=== PATIENT | male | born 1955 | race Caucasian/White ===

== ENCOUNTER 2019-06-04 02:29 | Inpatient (IN) | payer MEDICARE, OTHER ==
[~2019-06-04] VITALS: Ht 172.7 cm; Wt 128.8 kg
[2019-06-04] VITALS (9 sets, daily range): BP systolic 115–138; BP diastolic 60–70
[~2019-06-04 02:29] MED LIST: ASPI-869 PO; LISI-607 PO; METO-357 PO
--- NOTE | 2019-06-04 03:50 | NUR ---
DERRICK HAND OPENING NOTES, RECEIVED PATIENT FROM [place] VIA ULISES, AWAKE, A/O X4, JAPANESE SPEAKING. PATIENT IS AMBULATORY, ON 2L NC, NO SOB OR ACUTE DISTRESS NOTED AT THIS TIME . VS WNL. IV ON RIGHT HAND #22. FLUSHING WELL, NO S/S OF INFILTRATION NOTED. PATIENT IS ABLE TO USE URINAL. SKIN IS INTACT,ALL SAFETY MEASURES IN PLACE. BED LOCKED/LOW POSITION. CALL LIGHT WITHIN REACH WILL CONTINUE TO MONITOR.
[2019-06-04] MEDS ORDERED: MAGNESIUM HYDROXIDE 30 ML UDC PO PRN (05:30)
[2019-06-04] MEDS ORDERED: ACETAMINOPHEN 325 MG TABLET PO PRN (05:30)
[2019-06-04] MEDS ORDERED: ZOLPIDEM TARTRATE 5 MG TABLET PO PRN (05:30)
[2019-06-04] MEDS ORDERED: HYDROCODONE/APAP 5/325MG 1 EACH TABLET PO PRN (05:30)
[2019-06-04] MEDS ORDERED: ONDANSETRON HCL/PF 4 MG/2 ML VIAL IVP PRN (05:30)
[2019-06-04] MEDS ORDERED: IPRATROPIUM NEB FS 0.5 MG/2.5 ML AMPUL.NEB NEB PRN (05:30)
[2019-06-04] MEDS ORDERED: Z GUARD REMEDY 2 OZ OINT TP PRN (05:30)
[2019-06-04] MEDS ORDERED: ALBUTEROL HALF STRENGTH 1.25 MG/3 ML VIAL.NEB NEB PRN (05:30)
[2019-06-04] MEDS ORDERED: GUAIFENESIN/CODEINE 10 ML UDC PO PRN (05:30)
[2019-06-04] MEDS ORDERED: MAG HYDROX/AL HYDROX/SIMETH 30 ML UDC PO PRN (05:30)
[2019-06-04] MEDS: methylPREDNISolone SOD SUCC 40 MG/ML VIAL IV SCH ×3 (06:04→21:25)
--- NOTE | 2019-06-04 07:33 | NUR ---
VEHICLE MAINTENANCE TECHNICIAN OPENING NOTES, PATIENT RESTING IN BED, A/O X4, [place] SPEAKING. PATIENT IS AMBULATORY, ON 2L NC, NO SOB OR ACUTE DISTRESS NOTED AT THIS TIME . VS WNL. IV ON RIGHT HAND #22. FLUSHING WELL, NO S/S OF INFILTRATION NOTED. PATIENT IS ABLE TO USE URINAL. SKIN IS INTACT,ALL SAFETY MEASURES IN PLACE. BED LOCKED/LOW POSITION. CALL LIGHT WITHIN REACH, WILL ENDORSE THE CONTINUES CARE TO AM RN.
--- NOTE | 2019-06-04 08:24 | NUR ---
LIGHT RAIL SIGNAL TECHNICIAN NOTES PATIENT IN BED A/OX 4, ABLE TO AMBULATE TO BATHROOM. NO SOB OR PAIN REPORTED AT THIS TIME. CALL LIGHT WITHIN REACH , BED AT THE LOWEST POSITION LOCKED. WILL CONTINUE TO MONITOR.
[2019-06-04] MEDS ORDERED: CLOP75TA15 PO (08:35)
[2019-06-04] MEDS ORDERED: LOSA1TAB42 PO (08:35)
[2019-06-04] MEDS ORDERED: SPIR25TA PO (08:35)
[2019-06-04] MEDS ORDERED: ROSU20TA2 PO (08:35)
[2019-06-04] MEDS ORDERED: ASPI-1152 PO (08:35)
[2019-06-04] MEDS ORDERED: SPIRONOLACTONE 25 MG TABLET PO SCH (11:00)
--- NOTE | 2019-06-04 11:15 | NUR ---
COMMERCIAL LOAN COLLECTION OFFICER NOTES PATIENT IS MOVED FROM 119 BED 2 TO ROOM NO 110 BY WHEELCHAIR SAFELY.
[2019-06-04] MEDS ORDERED: HYDROCHLOROTHIAZIDE 25 MG TABLET PO SCH (11:22)
[2019-06-04] MEDS ORDERED: LOSARTAN POTASSIUM 50 MG TABLET PO SCH (11:26)
--- NOTE | 2019-06-04 11:59 | NUR ---
INPATIENT CODER NOTES RECEIVED A CALL FROM PHARMACY TO VERIFY IF THE PATIENT IS ALLERGIC TO STATINS AND COZAR. CALLED KRISTAL THE DAUGHTER IN LAW AND SHE CONFIRMED THAT PATIENT IS RECEIVING COZAR AT HOME WITHOUT ANY COMPLICATIONS. ASKED HER TO BRING THE MEDICATION TO [facility]. INFORMED PHARMACY.
[2019-06-04] MEDS: ASPIRIN EC 81 MG TABLET.DR PO SCH (14:13)
[2019-06-04] MEDS: SPIRONOLACTONE 25 MG TABLET PO SCH (14:13)
[2019-06-04] MEDS: LOSARTAN POTASSIUM 50 MG TABLET PO SCH (14:14)
[2019-06-04] MEDS: HYDROCHLOROTHIAZIDE 25 MG TABLET PO SCH (14:15)
[2019-06-04 17:03] LABS: ABG OXYGEN SATURATION 91.6 % (92.0-98.5); ABG PCO2 34.4 mmHg (35.0-45.0); ABG PH 7.387 (7.350-7.450); ABG PO2 65.4 mmHg (75.0-100.0); AaDO2 93.7 mmHg; COHb 0.3 % (0.5-1.5); MetHb 0.4 % (0.0-1.5); SITE, ABG Right Brachial; VENT MODE, BG nasal cannula
[2019-06-04] MEDS: AZITHROMYCIN 500 MG in IV D5W 250 ML IV SCH (17:58)
[2019-06-04] MEDS: CRESTOR 20MG PO SCH (18:07)
[2019-06-04] MEDS: CLOPIDOGREL BISULFATE 75 MG TABLET PO SCH (18:07)
--- NOTE | 2019-06-04 19:20 | NUR ---
CHANGED OF SHIFT REPORT Patient in bed, awake, A/O x4. Oxygen 2LPM via NC, tolerating well. Sinus rhythm in the Tele monitor, denies chest pain, no c/o pain. Maintained safety.
[2019-06-04] MEDS: CEFTRIAXONE 1 G in IV D5W 50 ML IV SCH (21:27)
[2019-06-05] VITALS (7 sets, daily range): BP systolic 98–124; BP diastolic 54–69
[2019-06-05] MEDS: methylPREDNISolone SOD SUCC 40 MG/ML VIAL IV SCH ×3 (05:17→20:45)
[2019-06-05 06:22] LABS: BASOPHILS % (AUTO) 0.2 % (0.0-2.0); EOSINOPHILS % (AUTO) 0.1 % (0.0-6.0); HEMATOCRIT 38 % (39-51); HEMOGLOBIN 12.9 g/dL (13.5-17.5); LYMPHOCYTES # (AUTO) 0.5 /CMM (0.8-4.8); LYMPHOCYTES % (AUTO) 4.8 % (20.0-44.0); MEAN CORPUSCULAR HGB CONC 34 g/dl (31.0-36.0); MEAN CORPUSCULAR VOLUME 90 fL (80-96); MONOCYTES # (AUTO) 0.6 /CMM (0.1-1.30); MONOCYTES % (AUTO) 6.4 % (2.0-12.0); NEUTROPHILS # (AUTO) 8.5 /CMM (1.8-8.9); NEUTROPHILS % (AUTO) 88.5 % (43.0-81.0); PLATELET COUNT (AUTO) 185 /CMM (150-450); RED BLOOD CELL COUNT(AUTO) 4.25 MIL/uL (4.5-6.0); WHITE BLOOD COUNT (AUTO) 9.6 K/uL (4.3-11.0)
--- NOTE | 2019-06-05 06:25 | NUR ---
END OF SHIFT REPORT Patient in bed, no acute events overnight. Sinus rhythm in the Tele monitor. Remains on supplemental Oxygen 2LPM via NC, tolerating well. IV antibiotic, IV steroid as scheduled, afebrile. Denies pain, slept well. Maintained safety.
[2019-06-05 06:56] LABS: CALCIUM, SERUM 8.8 mg/dL (8.5-10.1); CREATININE 1.1 mg/dL (0.6-1.3); MAGNESIUM 1.9 mg/dL (1.8-2.4); PHOSPHORUS 4.3 mg/dL (2.5-4.9); POTASSIUM 4.3 mmol/L (3.5-5.1)
--- NOTE | 2019-06-05 07:10 | NUR ---
CORPORATE COUNSELOR NOTES PATIENT IN BED ALERT ORIENTED X 3. NO ACUTE DISTRESS NOTED. BREATHING UNLABORED. SAFETY MEASURE IN PLACE. CALL LIGHT WITHIN REACH. WILL CONTINUE TO MONITOR ACCORDINGLY.
[2019-06-05] MEDS: ALBUTEROL HALF STRENGTH 1.25 MG/3 ML VIAL.NEB NEB SCH ×5 (07:35→23:45)
[2019-06-05] MEDS: ASPIRIN EC 81 MG TABLET.DR PO SCH (09:26)
[2019-06-05] MEDS: LOSARTAN POTASSIUM 50 MG TABLET PO SCH (09:26)
[2019-06-05] MEDS: SPIRONOLACTONE 25 MG TABLET PO SCH (09:26)
[2019-06-05] MEDS: HYDROCHLOROTHIAZIDE 25 MG TABLET PO SCH (09:27)
[2019-06-05] MEDS ORDERED: MAGNESIUM OXIDE 400 MG TABLET PO ONE (09:30)
--- NOTE | 2019-06-05 13:02 | NUR ---
RT NOT AWARE OF THE SCHEDULE MEDICATION TILL AFTER 13:00. WILL GIVE NEXT SCHEDULE MED.
[2019-06-05] MEDS: AZITHROMYCIN 500 MG in IV D5W 250 ML IV SCH (17:18)
[2019-06-05] MEDS: CLOPIDOGREL BISULFATE 75 MG TABLET PO SCH (17:18)
[2019-06-05] MEDS: CRESTOR 20MG PO SCH (17:18)
--- NOTE | 2019-06-05 18:45 | NUR ---
HEATER OPERATOR NOTES PATIENT IN BED ALERT ORIENTED X 3. NO ACUTE DISTRESS NOTED. BREATHING UNLABORED. NEEDS ATTENDED AND ANTICIPATED. NEEDS ATTENDED AND ANTICIPATED. SAFETY MEASURE IN PLACE. CALL LIGHT WITHIN REACH. WILL ENDORSE TO NIGHT NURSE FOR CONTINUITY OF CARE.
[2019-06-05] MEDS: CEFTRIAXONE 1 G in IV D5W 50 ML IV SCH (20:45)
[2019-06-06] VITALS: BP 120/77
[2019-06-06] MEDS: ALBUTEROL HALF STRENGTH 1.25 MG/3 ML VIAL.NEB NEB SCH ×3 (03:30→11:11)
[2019-06-06 04:00] VITALS: BP 128/80
[2019-06-06 05:00] VITALS: BP 128/80
[2019-06-06] MEDS: methylPREDNISolone SOD SUCC 40 MG/ML VIAL IV SCH (05:04)
--- NOTE | 2019-06-06 07:00 | NUR ---
RN INITIAL NOTE RECEIVED BEDSIDE REPORT, PATIENT AWAKE AND ALERT. POLISH SPEAKING. ON ROOM AIR. NO COMPLAINS OF ANY SOB NOR PAIN AT THIS TIME. ALERT AND ORIENTEDX4. UNDERSTANDS BASIC GUINEAN. ON TELE MONITOR, SR. AMBULATORY WITH STEADY GAIT. HAS A RIGHT HAND #20. BED IN LOWEST POSITION. CALL LIGHT WITHIN REACH. WILL CONTINUE TO MONITOR
[2019-06-06] MEDS ORDERED: AMOX-430 PO (07:50)
[2019-06-06] MEDS ORDERED: METH4TAB3 PO (07:50)
[2019-06-06] MEDS ORDERED: ALBU8.5H8 INH (07:51)
[2019-06-06 08:00] VITALS: BP 120/71
[2019-06-06 08:05] VITALS: BP 120/71
[2019-06-06] MEDS: SPIRONOLACTONE 25 MG TABLET PO SCH (08:05)
[2019-06-06] MEDS: HYDROCHLOROTHIAZIDE 25 MG TABLET PO SCH (08:05)
[2019-06-06] MEDS: ASPIRIN EC 81 MG TABLET.DR PO SCH (08:05)
[2019-06-06] MEDS: LOSARTAN POTASSIUM 50 MG TABLET PO SCH (08:05)
--- NOTE | 2019-06-06 11:21 | NUR ---
PROJECT OFFICER NOTE PATIENT WAS DISCHARGED, AT BEDSIDE. EXIT CARE EXPLAINED AND GIVEN TO THE PATIENT. AWARE THE NEED TO FOLLOW UP WITH PCP AND DR FONTENOT FOR MORE TESTS. [place] PO WAS PICKED UP FROM PHARMACY AND WAS GIVEN TO THE PATIENT. WELL THE CD FROM [facility]. IV SITE, ID BANDS REMOVED. PATIENT REFUSED TO HAVE HIS PICTURES TAKEN AND REFUSED TO BE WHEELED ON A WHEELCHAIR. BELONGINGS LIST SIGNED. NO COMPLAINS OF ANY SOB AT THIS TIME. ALL PRESCRIPTION WERE SENT VIA ELECTRONICALLY AT THEIR PHARMACY.
== END 2019-06-06 11:15 | disposition home or self-care (01) | DRG 202 ==
LOC: TELE-TD 03:40 → TELE1 04:07
PROVIDERS: ADMIT Nurse Practitioner Acute Care; ATTEND Nurse Practitioner Acute Care
DX: J45.901 Unspecified asthma with (acute) exacerbation (principal); J15.9 Unspecified bacterial pneumonia; E66.2 Morbid (severe) obesity with alveolar hypoventilation; I50.32 Chronic diastolic (congestive) heart failure; Z68.41 Body mass index [BMI] 40.0-44.9, adult; E44.1 Mild protein-calorie malnutrition; I11.0 Hypertensive heart disease with heart failure; I48.91 Unspecified atrial fibrillation; I25.10 Atherosclerotic heart disease of native coronary artery without angina pectoris; Z95.1 Presence of aortocoronary bypass graft; F17.210 Nicotine dependence, cigarettes, uncomplicated; E78.5 Hyperlipidemia, unspecified; R07.89 Other chest pain; Z71.6 Tobacco abuse counseling; Z71.3 Dietary counseling and surveillance
CPT/HCPCS: 36415; 36600; 71045-TC; 80048-TC; 80061-TC; 82803-TC; 83735-TC; 83880; 84100-TC; 84484-TC; 85025-TC; 93307-TC; 93970-TC; G0378; J0456; J0696; J2405; J2920; J7050; J7060

== ENCOUNTER 2021-07-11 12:32 | Outpatient (CLI) | payer MEDICARE, OTHER ==
[~2021-07-11 12:32] MED LIST changes: +ALBU8.5H8 INH; +AMOX-430 PO; +ASPI-1420 PO; -ASPI-869 PO; +CLOP75TA15 PO; -LISI-607 PO; +LOSA1TAB42 PO; +METH4TAB3 PO; -METO-357 PO; +ROSU20TA2 PO; +SPIR25TA PO
[2021-07-11 13:54] LABS: CALCIUM, SERUM 9.4 mg/dL (8.5-10.1); CREATININE 1.3 mg/dL (0.6-1.3); POTASSIUM 4.2 mmol/L (3.5-5.1)
== END 2021-07-11 23:59 | disposition home or self-care (01) ==
LOC: LAB 12:32
PROVIDERS: ATTEND Internal Medicine Pulmonary Disease
DX: J18.9 Pneumonia, unspecified organism (principal)
CPT/HCPCS: 36415; 80048-TC

== ENCOUNTER 2021-07-15 10:44 | Outpatient (CLI) | payer MEDICARE, OTHER ==
[2021-07-15] MEDS ORDERED: IV NS 0.9% 250 ML IV ONE (10:53)
[2021-07-15] MEDS ORDERED: IOHEXOL-300 100 ML VIAL IV ONE (10:53)
== END 2021-07-15 23:59 | disposition home or self-care (01) ==
LOC: CT 10:44
PROVIDERS: ATTEND Internal Medicine Pulmonary Disease
DX: I51.7 Cardiomegaly (principal); I70.0 Atherosclerosis of aorta; K80.20 Calculus of gallbladder without cholecystitis without obstruction; J18.9 Pneumonia, unspecified organism; M47.814 Spondylosis without myelopathy or radiculopathy, thoracic region; Z95.1 Presence of aortocoronary bypass graft
CPT/HCPCS: 71260-TC; J7050; Q9967